=== PATIENT | female | born 1945 | race Caucasian/White ===

== ENCOUNTER 2021-07-04 08:40 | Emergency (ER) | payer OTHER ==
[~2021-07-04] VITALS: Ht 167.6 cm; Wt 72.6 kg
[2021-07-04 09:22] LABS: CLARITY Turbid (Clear)
[2021-07-04 09:30] LABS: COLOR Orange (Yellow)
[2021-07-04 09:31] LABS: BILIRUBIN 3+ (Negative); GLUCOSE Trace (Negative)
[2021-07-04 09:32] LABS: BLOOD 3+ (Negative); KETONE Negative (Negative)
[2021-07-04 09:33] LABS: LEUKO ESTERASE 3+ (Negative); NITRITE Positive (Negative)
[2021-07-04 09:36] LABS: BACTERIA 4+; EPITHELIAL CELLS 16-20; RBC TNTC rbc/hpf (0-2); WBC TNTC wbc/hpf (0-5)
[2021-07-04] MEDS ORDERED: CEFUROXIME AXE500 MG PO (09:40)
== END 2021-07-04 09:47 | disposition home or self-care (01) ==
LOC: ED 08:40
PROVIDERS: Emergency Medicine
DX: N39.0 Urinary tract infection, site not specified (principal); Z88.6 Allergy status to analgesic agent